=== PATIENT | female | born 1985 | race Caucasian/White ===

== ENCOUNTER → 2017-04-01 | Emergency (ER) | payer OTHER ==
[~2017-04-01] MED LIST: ACETAMINOPHEN 325 MG TABLET (FP) ONE; ACETAMINOPHEN 325 MG TABLET (FP) PO ONE
[2017-04-01 03:17] VITALS: BMI 28.3
--- NOTE | 2017-04-01 04:37 | PDOC ---
History of Present Illness - General Chief Complaint: Pain, Acute Stated Complaint: STOMACH PAIN (11 WEEKS) Time Seen by Provider: 04/01/17 03:22 History Source: Patient Exam Limitations: No Limitations - History of Present Illness Initial Comments: 04/01/17 04:33 Patient is a 31 year old female with LMP 01/04/17 h/o C/S x 1, c/o vaginal bleeding and lower abd pain since 1 am. States she woke up with the pain and bleeding. No nausea, vomiting, fever, chills, dysuria. [facility] pmd: Dr. Mathe[facility] PMHX: as above psochx: neg durg, etoh, cig ALL: NKDA GENERAL/CONSTITUTIONAL: [No fever or chills. No weakness. No weight change.] HEAD, EYES, EARS, NOSE AND THROAT: [No change in vision. No ear pain or discharge. No sore throat.] CARDIOVASCULAR: [No chest pain or shortness of breath.] RESPIRATORY: [No cough, wheezing, or hemoptysis.] GASTROINTESTINAL: [No nausea, vomiting, diarrhea or constipation. No rectal bleeding.] GENITOURINARY: [No dysuria, frequency, or change in urination, (+) vag bleed.] MUSCULOSKELETAL: [No joint or muscle swelling or pain. No neck or back pain.] SKIN AND BREASTS: [No rash or easy bruising.] NEUROLOGIC: [No headache, vertigo, loss of consciousness, or loss of sensation.] PSYCHIATRIC: [No depression or anxiety.] ENDOCRINE: [No increased thirst. No abnormal weight change.] HEMATOLOGIC/LYMPHATIC: [No anemia, easy bleeding, or history of blood clots.] ALLERGIC/IMMUNOLOGIC: [No hives or skin allergy. No latex allergy.] GENERAL: [The patient is awake, alert, and fully oriented, in mild distress.] HEAD: [Normal with no signs of trauma.] EYES: [Pupils equal, round and reactive to light, extraocular movements intact, sclera anicteric, conjunctiva clear.] ENT: [Ears normal, nares patent, oropharynx clear without exudates. Moist mucous membranes.] NECK: [Normal range of motion, supple without lymphadenopathy, JVD, or masses.] LUNGS: [Breath sounds equal, clear to auscultation bilaterally. No wheezes, and no crackles.] HEART: [Regular rate and rhythm, normal S1 and S2 without murmur, rub.] ABDOMEN: [Soft, (+) mild lower abd tenderness, normoactive bowel sounds. No guarding, no rebound. No masses.] PELVIC: (+) bleeding, small amount of blood in the vault, no bleeding from closed os EXTREMITIES: [Normal range of motion, no edema. No clubbing or cyanosis. No cords, erythema, or tenderness.] NEUROLOGICAL: [Cranial nerves II through XII grossly intact. Normal speech, normal gait.] PSYCH: [Normal mood, normal affect.] SKIN: [Warm, Dry, normal turgor, no rashes or lesions noted.] Past History - Past Medical History Allergies/Adverse Reactions: Allergies Allergy/AdvReac Type Severity Reaction Status Date / Time No Known Allergies Allergy Verified 04/01/17 03:07 Home Medications: Ambulatory Orders Benzocaine/Resorcinol [Vaginal Itch Cream] 30 gm TP BID #1 tube 01/28/16 Miconazole/Cleanser 17 On Wipe [Monistat 7 Combination Pack] 1 each VG HS #1 kit 01/28/16 Other medical history: pt denies - Immunization History Immunization Up to Date: Yes - Psycho/Social/Smoking Cessation Hx Suicidal Ideation: No Smoking History: Never smoked Information on smoking cessation initiated: No Hx Alcohol Use: No Drug/Substance Use Hx: No Substance Use Type: None *Physical Exam - Vital Signs Last Vital Signs Temp Pulse Resp BP Pulse Ox 97.5 F L 75 20 116/65 100 04/01/17 03:07 04/01/17 03:07 04/01/17 03:07 04/01/17 03:07 04/01/17 03:07 ED Treatment Course - LABORATORY CBC & Chemistry Diagram: 04/01/17 05:05 Medical Decision Making - Medical Decision Making 04/01/17 05:51 Patient is a 31 year old female with LMP 01/04/17 h/o C/S x 1, c/o vaginal bleeding and lower abd pain since 1 am. she is 10 weeks with OBS care. Symptoms consistent with threatened . cbc, type and screen UA will discharge after labs 04/01/17 05:54 Bedside US done (+) live IUP, (+) FH 157 labs with no acute finding, blood in the urine. T&S O+ 04/01/17 06:18 I discussed the physical exam findings, ancillary test results and final diagnoses with the patient. I answered all of the patient's questions. The patient was satisfied with the care received and felt comfortable with the discharge plan and treatment plan. The Patient agrees to follow up with the primary care physician within 24-72 hours. *DC/Admit/Observation/Transfer Diagnosis at time of Disposition: Threatened - Discharge Dispostion Disposition: HOME Condition at time of disposition: Stable - Referrals Referrals: Bisi Mccullough MD [Primary Care Provider] - - Patient Instructions Printed Discharge Instructions: DI for Threatened Additional Instructions: Your Discharge Instructions: You must call primary care physician within 24 hours to arrange follow-up. Return to the Emergency Department with any new, persistent or worsening symptoms, for fever, chills, SOB, dizziness or any other concerning changes that may occur. Follow up with OBS/SALON SALES CONSULTANT
[2017-04-01 05:10] LABS: MCH 27.5 pg (25.7-33.7); MCHC 32.9 g/dl (32.0-36.0); MEAN CELL VOLUME 83.7 fl (80-96); MEAN PLT VOLUME 7.8 fl (7.5-11.1); PLATELET COUNT 245 K/MM3 (134-434); RDW 22.9 % (11.6-15.6); WHITE BLOOD COUNT 8.5 K/mm3 (4.0-10.0)
[2017-04-01 05:15] LABS: URINE APPEARANCE CLEAR; URINE BILIRUBIN NEGATIVE (NEGATIVE); URINE COLOR YELLOW; URINE GLUCOSE (UA) NEGATIVE (NEGATIVE); URINE KETONE NEGATIVE (NEGATIVE); URINE LEUK ESTERASE NEGATIVE (NEGATIVE); URINE NITRITE NEGATIVE (NEGATIVE); URINE PROTEIN NEGATIVE (NEGATIVE); URINE UROBILINOGEN NEGATIVE E.U./dl (0.2-1.0)
[2017-04-01 05:26] LABS: URINE BLOOD 3+ (NEGATIVE)
[2017-04-01 05:28] LABS: URINE BACTERIA RARE /hpf (NONE SEEN); URINE MUCUS RARE; URINE RBC 20 /hpf (0-3); URINE WBC 3 /hpf (3-5)
[2017-04-01 06:47] VITALS: BP 116/75; PULSE 56; TEMP 97.6
== END | disposition home or self-care (01) ==
LOC: JER 02:02
DX: O20.0 Threatened abortion (principal); Z3A.10 10 weeks gestation of pregnancy
CPT/HCPCS: 36415; 81003; 81015; 85027; 86850; 86900; 86901; 99283-25

== ENCOUNTER 2017-04-08 17:22 | Emergency (ER) | payer OTHER ==
[2017-04-08 17:32] VITALS: BP 126/64; PULSE 61; TEMP 98.1; BMI 28.5
--- NOTE | 2017-04-08 22:00 | PDOC ---
History of Present Illness - General History Source: Patient Exam Limitations: No Limitations - History of Present Illness Initial Comments: 04/08/17 23:21 The patient is a 31-year-old female, , with no significant past medical history, who presents to the ED with vaginal bleeding and abdominal pain. Pt states that her pain is similar to contraction pain. Pts blood is dark brown in color. She reports to the ED for worsening abdominal pain. Pt was seen in the ED on 04/01 for threatened ; pt was 11 weeks . The patient denies any fever, chills, nausea, vomiting, diarrhea. The patient denies any dysuria. <Johanna Venegas - Last Filed: 04/08/17 23:21> <Mamta Russell - Last Filed: 04/09/17 00:36> - General Chief Complaint: Vaginal Bleeding Stated Complaint: VAGINAL BLEEDING, 11 WKS Time Seen by Provider: 04/08/17 21:02 Past History <Johanna Venegas - Last Filed: 04/08/17 23:21> - Reproductive History (#): 4 Para: 3 - Immunization History Immunization Up to Date: Yes - Psycho/Social/Smoking Cessation Hx Suicidal Ideation: No Smoking History: Never smoked Information on smoking cessation initiated: No Hx Alcohol Use: No Drug/Substance Use Hx: No Substance Use Type: None <Mamta Russell - Last Filed: 04/09/17 00:36> - Past Medical History Allergies/Adverse Reactions: Allergies Allergy/AdvReac Type Severity Reaction Status Date / Time No Known Allergies Allergy Verified 04/08/17 17:32 Home Medications: Ambulatory Orders Benzocaine/Resorcinol [Vaginal Itch Cream] 30 gm TP BID #1 tube 01/28/16 Miconazole/Cleanser 17 On Wipe [Monistat 7 Combination Pack] 1 each VG HS #1 kit 01/28/16 Review of Systems - Review of Systems Able to Perform ROS?: Yes Comments:: 04/08/17 23:21 Adult Comprehensive CONSTITUTIONAL: Absent: fever, no chills, no fatigue EYES: Absent: visual changes ENT: Absent: ear pain, no sore throat CARDIOVASCULAR: Absent: chest pain, no palpitations RESPIRATORY: Absent: cough, no SOB GI: Present: abdominal pain Absent: no nausea, no vomiting, no constipation, no diarrhea GENITOURINARY: Present: vaginal bleeding Absent: dysuria, no frequency, no hematuria MUSKULOSKELETAL: Absent: back pain, no arthralgia SKIN: Absent: rash NEURO: Absent: headache <TheoJohanna - Last Filed: 04/08/17 23:21> *Physical Exam - Vital Signs Last Vital Signs Temp Pulse Resp BP Pulse Ox 98.1 F 61 18 126/64 99 04/08/17 17:29 04/08/17 17:29 04/08/17 17:29 04/08/17 17:29 04/08/17 17:29 - Physical Exam Comments: 04/08/17 23:23 GENERAL: Well-appearing, well-nourished. No apparent distress. HEENT: Normocephalic, atraumatic. PERRL, EOM intact. CARDIOVASCULAR: Normal S1, S2. Regular rate and rhythm. PULMONARY: Clear to auscultation bilaterally. ABDOMEN: Soft, non-distended, non-tender. EXTREMITIES: Normal ROM in all four extremities. No gross deformities. SKIN: Warm, dry. No rash NEUROLOGICAL: No focal neurological deficits. <TheoJohanna - Last Filed: 04/08/17 23:21> - Vital Signs Last Vital Signs Temp Pulse Resp BP Pulse Ox 98.1 F 61 18 126/64 99 04/08/17 17:29 04/08/17 17:29 04/08/17 17:29 04/08/17 17:29 04/08/17 17:29 <Mamta Russell - Last Filed: 04/09/17 00:36> Medical Decision Making - Medical Decision Making 04/09/17 00:31 31 yo female p/w pelvic cramping and scant blood on toilet paper US SL IUP 13 weeks 1 day and heart beat 161 bpm,no free fluid cg [id number] imp threatened ab plan :followup with her nursing staffing coordinator within 1 week <Mamta Russell - Last Filed: 04/09/17 00:36> *DC/Admit/Observation/Transfer - Attestations Scribe Attestion: 04/08/17 22:13 Documentation prepared by Johanna Venegas, acting as medical receptionist for Mamta Russell MD. <Johanna Venegas - Last Filed: 04/08/17 23:21> <DrewMamta Mccrary - Last Filed: 04/09/17 00:36> Diagnosis at time of Disposition: Threatened - Discharge Dispostion Disposition: HOME Condition at time of disposition: Stable - Referrals Referrals: Bisi Sorto MD [Primary Care Provider] - - Patient Instructions Printed Discharge Instructions: DI for Vaginal Bleeding During , DI for Threatened Additional Instructions: please follow up with your nursing staffing coordinator
== END 2017-04-09 00:44 | disposition home or self-care (01) ==
LOC: JER 17:22
DX: O20.0 Threatened abortion (principal); Z3A.13 13 weeks gestation of pregnancy
CPT/HCPCS: 36415; 76801-TC; 84702; 99281-25

== ENCOUNTER 2017-10-04 06:12 | Inpatient (IN) | payer OTHER ==
[2017-10-04 06:38] VITALS: BMI 32.0
[2017-10-04] MEDS ORDERED: ELECTROLYTE-148 SOLN 500 ML IV ONE (06:40)
[2017-10-04] MEDS ORDERED: CITRIC ACID/SODIUM CITRATE 30 ML UNIT-DOSE CUP PO ONE (06:40)
[2017-10-04] MEDS ORDERED: ELECTROLYTE-148 SOLN 1,000 ML IV SCH (07:10)
[2017-10-04] MEDS ORDERED: OXYTOCIN 20 UNITS in 0.9% NS 40 UNIT/2,000 ML INFUS.BAG IV ONE (07:33)
[2017-10-04] MEDS ORDERED: morphine SULFATE/Preservative Free 0.5 MG/ML (1cc Syringe) ONE (08:06)
[2017-10-04] MEDS ORDERED: PHENYLEPHRINE HCL 10 MG/1 ML SINGLE DOSE VIAL ONE (08:06)
[2017-10-04] MEDS ORDERED: EPINEPHrine/PF 1 MG/1 ML (1:1,000) AMPULE ONE (08:16)
--- NOTE | 2017-10-04 08:19 | HP ---
Past Medical History - Primary Care Physician PCP:: Kita Hilton - Admission Chief Complaint: 31 yrs , , , previous c/s, breech presentation,(by [facility] 09/25/17 ) admitted for elective c/section, srom at 8.00 AM. she has irregula uc. pt requests for voluntory sterlization History of Present Illness: [facility] at , [facility] .wt gain 20 LBS wrk UP , Opos, Rpr nr, Rubella pos, Hbsag neg, Hiv neg, Sickle neg, Quantiferon neg, 1hrGtt 110, Gbs neg . sono gram reviewed , serial growth sonograms were done. NT screen & Modified Sequential negative History Source: Patient, Medical Record - Past Medical History WIREWORKER: No: Migraine, Seizure Cardiovascular: No: HTN Pulmonary: No: Asthma Gastrointestinal: No: Gastritis Renal/: No: UTI ...: 4 ...Para: 3 ...Term: 3 ...: 0 ...Spon : 0 ...Induced : 0 ...Multiple Gestation: 0 ...LMP: 01/04/17 ... Weeks Gestation by Dates: 39 ...EDC by Dates: 10/11/17 ...EDC by Sono: 10/11/17 Additional OB History: G1 05/30/2000 3kg [place]. G2 10/10/2006 3 kg [place]. G3 03/26/2010 primary LFTC/section 9'11" FTP at [facility] Heme/Onc: Yes: Anemia. No: Sickle Cell Trait Infectious Disease: No: STD's, Tuberculosis Psych: No: Addictions, Anxiety, Bipolar, Depression - Past Surgical History Past Surgical History: Yes: (03/26/2010) Hx Myomectomy: No Hx Transabdominal Cerclage: No - Smoking History Smoking history: Never smoked Have you smoked in the past 12 months: No - Alcohol/Substance Use Hx Alcohol Use: No History of Substance Use: reports: None Home Medications - Allergies Allergies/Adverse Reactions: Allergies Allergy/AdvReac Type Severity Reaction Status Date / Time No Known Allergies Allergy Verified 10/04/17 06:49 - Home Medications Home Medications: Ambulatory Orders Prenat 115/Iron Fum/Folic/Dss [ 19 Tablet] 1 tab PO DAILY 10/04/17 Physical Exam - Maternity Vital Signs: Vital Signs Temperature 97.8 F 10/04/17 06:27 Pulse Rate 56 L 10/04/17 06:27 Respiratory Rate 20 10/04/17 06:27 Blood Pressure 115/74 10/04/17 06:27 O2 Sat by Pulse Oximetry (%) Constitutional: Yes: Well Nourished, No Distress Eyes: Yes: WNL HENT: Yes: WNL, Normocephalic Neck: Yes: WNL Cardiovascular: Yes: WNL, Regular Rate and Rhythm Lungs: Clear to auscultation Breast(s): Yes: WNL - Abdominal Exam/OB Fundal Height: 38 Number of Fetuses: Single Presentation: Vertex Contractions: Yes Regularity: Irregular Intensity: Mild Heart Rate (range): 140-150 Heart Rate Location: Midline Category: I Accelerations: Uniform Decelerations: None - Vaginal Exam/OB Vaginal Bleediing: No Speculum Exam: No Dilatation (cm): ft Effacement (%): 50 Amniotic Membrane Status: Ruptured (srom at 8.00AM) Nitrazine Test: Positive Amniotic Fluid: Yes: Clear Presentation: Vertex/Position (compound presentaion) Station: -3 - Physical Exam Musculoskeletal: Yes: WNL Extremities: Yes: WNL Edema: Yes Edema: LLE: 1+, RLE: 1+ Integumentary: Yes: Incision (pfannensteil scar) Deep Tendon Reflex Grade: Normal +2 ...Motor Strength: WNL Psychiatric: Yes: WNL, Alert, Oriented - Labs Lab Results: Laboratory Tests 10/02/17 10/02/17 10/02/17 10:31 10:31 10:31 WBC 7.1 Hgb 12.5 Hct 37.3 Plt Count 248 Neutrophils % 70.3 Lymphocytes % 19.3 PT with INR 10.70 INR 0.95 Sodium 137 Potassium 3.9 Chloride 105 Carbon Dioxide 23 Creatinine 0.5 L Random Glucose 79 AST 40 H ALT 52 RPR Titer 10/02/17 10:31 WBC Hgb Hct Plt Count Neutrophils % Lymphocytes % PT with INR INR Sodium Potassium Chloride Carbon Dioxide Creatinine Random Glucose AST ALT RPR Titer Nonreactive Hemorrhage Risk Assessment - Risk Factors Medium Risk Factors: Yes: Prior , uterine surgery,or multiple laparotomies Risk Score: 1 Risk Level: Medium Risk Problem List - Problems (1) Previous section Code(s): Z98.891 - HISTORY OF UTERINE SCAR FROM PREVIOUS SURGERY (2) with 39 completed weeks gestation Code(s): Z3A.39 - 39 WEEKS GESTATION OF (3) SROM (spontaneous rupture of membranes) Code(s): TNU8616 - (4) Multiparity Code(s): Z64.1 - PROBLEMS RELATED TO MULTIPARITY Assessment/Plan 31 yrs , previous c/section , mutiparity, requests for repeat c.section & voluntary sterlization Plan Repeat LFTC/section & BTL
[2017-10-04] MEDS ORDERED: ONDANSETRON 4 MG/2 ML VIAL IVPUSH PRN (08:26)
[2017-10-04] MEDS ORDERED: ONDANSETRON 4 MG/2 ML VIAL ONE (09:29)
[2017-10-04] MEDS ORDERED: SENNOSIDES/DOCUSATE COMBO (SENNA PLUS) TABLET (UD) PO PRN (09:42)
[2017-10-04] MEDS ORDERED: METHYLERGONOVINE MALEATE 0.2 MG/1 ML AMP IM PRN (09:42)
[2017-10-04] MEDS: OXYTOCIN 20 UNITS in 0.9% NS 20 UNIT/1,000 ML INFUS.BAG IV SCH (09:45)
--- NOTE | 2017-10-04 09:56 | OP ---
Operative Note - Note: Operative Date: 10/04/17 Pre-Operative Diagnosis: 39 weeks, previous c/sction, Multiparity, voluntory sterlization Operation: Repeat LFTC/section & BTL Findings: 8.36 AM, Baby Girl, 9/9, Wt 7'2: , Vx LOT Bothh tubes & ovaries normal Both tubes ligated & cut by Modified [place] technique . Dr Parish Geronimo present in the OR Surgeon: Kita Hilton Workers' Compensation Claims Examiner: Riky Sharma Anesthesiologist/PUBLIC BATH ATTENDANT: Christopher Stiles Anesthesia: Spinal Specimens Removed: placenta. cord blood. portion of Left Tube. portion of Right Tube Estimated Blood Loss (mls): 700 Drains, Volume Out (mls): 300 (suzi color , del rosario out put ) Fluid Volume Replaced (mls): 2,000 (Iv ancef 1 gm prior to incision ) Operative Report Dictated: Yes
--- NOTE | 2017-10-04 10:30 | PN ---
Delivery - Delivery Section: Repeat, Low Flap Transverse (BTL) Type of Anesthesia: Spinal Episiotomy/Laceration: None EBL (cc): 700 (del rosario out put 300 ml uszi color ) Delivery, Single - Stages of Labor Date of Delivery: 10/04/17 Time of Delivery: 08:36 Date Placenta Delivered: 10/04/17 Time Placenta Delivered: 08:38 Placenta: Yes: Manual Removal - Condition of Non Categorical Preschool Teacher/Social Media Specialist Present: Yes Name: Grazyna Lugo Infant Gender: Female Weight: 7 lb 2 oz Position: Left, OT Total Hours ROM (Hrs/Mins): 1min - 1 Minute Total Score: 9 5 Minutes Total Score: 9 - Feeding Plan Initial Plan: Elected not to breastfeed exclusively throughout hospitalization Remarks - Remarks Remarks: 31 yrs , previous c/section 39 weeks , requests for voluntary sterlization gbs neg. . care at , [facility] Intraop course uneventful.
--- NOTE | 2017-10-04 10:43 | DS ---
Physical Exam-DEFENCE INTELLIGENCE ANALYST Vital Signs: Vital Signs Temperature 97.6 F 10/04/17 10:15 Pulse Rate 70 10/04/17 10:15 Respiratory Rate 20 10/04/17 10:15 Blood Pressure 106/60 10/04/17 10:15 O2 Sat by Pulse Oximetry (%) Selected Entries 10/07/17 09:00 Temperature 98.2 F Pulse Rate 66 Blood Pressure 108/57 Constitutional: Yes: Well Nourished, Mild Distress Eyes: Yes: WNL HENT: Yes: WNL Neck: Yes: WNL Cardiovascular: Yes: WNL Respiratory: Yes: WNL, Regular, CTA Bilaterally, Cough, Other (c/o productive cough chest Xray neg flu symptoms, nasal congestion reduced). No: SOB Gastrointestinal: Yes: WNL, Normal Bowel Sounds, Soft, Other (bm done). No: Distention Renal/: Yes: WNL, Other (voiding without difficulty) ....Post : Yes: Uterus firm, Moderate lochia rubra Breast(s): Yes: WNL Extremities: No: Calf Tenderness Edema: LLE: 1+, RLE: 1+ Wound/Incision: Yes: Clean/Dry, Mary Intact, Steri Strips, Open to air. No: Reddened, Bleeding, Excoriated Neurological: Yes: WNL, Alert, Oriented ...Motor Strength: WNL Psychiatric: Yes: WNL, Alert, Oriented Labs: Selected Entries 10/07/17 09:00 Temperature 98.2 F Laboratory Tests 10/07/17 07:00 WBC 9.7 Hgb 11.1 Hct 33.5 Plt Count 251 Neutrophils % 80.7 Lymphocytes % 11.6 D Monocytes % 5.0 Eosinophils % 2.3 D Delivery - Delivery Section: Repeat, Low Flap Transverse (BTL) Type of Anesthesia: Spinal Episiotomy/Laceration: None EBL (cc): 700 (del rosario out put 300 ml suzi color ) Delivery, Single - Stages of Labor Date of Delivery: 10/04/17 Time of Delivery: 08:36 Time Placenta Delivered: 08:38 Placenta: Yes: Manual Removal - Condition of Infant Cigarette Filter Inspector/Nuclear Waste Process Operator Present: Yes Name: Grazyna Lugo Infant Gender: Female Weight: 7 lb 2 oz Position: Left, OT Total Hours ROM (Hrs/Mins): 1min - 1 Minute Total Score: 9 5 Minutes Total Score: 9 - [place] Ari Feeding Plan Initial Plan: Elected not to breastfeed exclusively throughout hospitalization Remarks - Remarks Remarks: 31 yrs , previous c/section 39 weeks , requests for voluntary sterlization gbs neg. . care at [address] [place] [address] Intraop course uneventful. . post op course uneventful. discharge 10/07/17 she will return for mary removal Discharge Summary Reason For Visit: SCHEDULED C SECTION Current Active Problems delivery, delivered, current hospitalization (Acute) Elective delivery before 39 weeks of gestation (Acute) Encounter for tubal ligation (Acute) Multiparity (Acute) with 39 completed weeks gestation (Acute) Previous section (Acute) SROM (spontaneous rupture of membranes) (Acute) Condition: Good - Instructions Diet, Activity, Other Instructions: Post Instructions DIET: Continue good diet high in protein, calcium, and iron rich foods. Drink at least eight (8) glasses of water daily in addition to other fluids. ___ Regular diet MEDICATIONS: Continue vitamins and iron as previously directed. Motrin and Tylenol may be taken for minor discomfort. ACTIVITY: Mild to moderate exercise may be started in two (2) weeks. Take frequent rest periods. Resume normal activity after six (6) week check up. WOUND CARE OF OPERATIVE SITE: Continue use of perineal bottle until vaginal discharge stops. Keep area clean. Shower daily. Keep abdominal wound dry. Report any drainage or redness to physician. Tub baths, tampons and douches are not permitted for [address] Breast feeding & or Bottle feeding BREAST CARE: (For those that are not breast feeding): If engorgement occurs: Wear tight fitting bra. Take Tylenol or Motrin for pain. Apply cold packs (ice in bags to each breast ) FAMILY PLANNING: There are many control alternatives to pursue and they should be discussed at your first office visit. You may resume sexual activity after your six (6) week check up. (Remember, breast feeding is not a contraceptive) NEXT PHYSICIAN APPOINTMENT: Be certain to call for one (1) week appointment, unless otherwise directed. . rt to L&D for mary removal on 10/10/17 , to see Dr osuna at 10.00AM Call Clinic or got to Emergency Dept if you have any of the following: Heavy vaginal bleeding Painful urination Leg pain Unusual odor noted to vaginal bleeding High fever Red streaking noted on breast Referrals: Kita Osuna MD [Staff Physician] - Disposition: HOME - Home Medications Comprehensive Discharge Medication List: Ambulatory Orders Acetaminophen [Tylenol .Regular Strength -] 500 mg PO Q4H PRN #30 tablet Ferrous Sulfate [Feosol] 325 mg PO BIDWM tab 10/04/17 Ibuprofen [Motrin -] 600 mg PO Q4H PRN #30 tablet 10/04/17 Prenat 115/Iron Fum/Folic/Dss [ 19 Tablet] 1 tab PO DAILY 10/04/17 Vitamins (Sjr) - 1 tab PO DAILY tablet 10/04/17
[2017-10-04] MEDS: IBUPROFEN 800 MG/8 ML IJ IVPB PRN ×2 (11:22→22:18)
[2017-10-04] MEDS: guaiFENesin 200 MG/10 ML 10 ML UNIT-DOSE CUPS PO PRN ×3 (14:49→22:15)
[2017-10-04] MEDS: CEFAZOLIN 1 GM PUSH 1 GM/10 ML DISP.SYRIN IVPUSH SCH ×2 (16:42→23:53)
[2017-10-05] MEDS: guaiFENesin 200 MG/10 ML 10 ML UNIT-DOSE CUPS PO PRN ×2 (08:08→20:59)
[2017-10-05] MEDS: CEFAZOLIN 1 GM/D5W 1 GM/50 ML BAG IVPB SCH ×2 (08:08→08:10)
[2017-10-05] MEDS: SIMETHICONE 80 MG TAB.CHEW (FP) PO PRN ×3 (08:08→20:59)
[2017-10-05] MEDS: IBUPROFEN 600 MG TABLET (FP) PO PRN ×3 (08:08→20:59)
[2017-10-05] MEDS: ACETAMINOPHEN 325 MG TABLET (FP) PO PRN ×2 (08:09→17:47)
[2017-10-05 08:15] LABS: BASO % 1.3 % (0-2.0); EOS % 0.9 % (0-4.5); HEMATOCRIT 34.3 % (32.4-45.2); HEMOGLOBIN 11.3 GM/dL (10.7-15.3); LYMPH % 18.8 % (8-40); MCH 30.8 pg (25.7-33.7); MCHC 33.1 g/dl (32.0-36.0); MEAN CELL VOLUME 93.1 fl (80-96); MEAN PLT VOLUME 8.6 fl (7.5-11.1); MONO % 7.3 % (3.8-10.2); NEUT % 71.7 % (42.8-82.8); PLATELET COUNT 226 K/MM3 (134-434); RBC 3.68 M/mm3 (3.60-5.2); RDW 13.9 % (11.6-15.6); WHITE BLOOD COUNT 11.2 K/mm3 (4.0-10.0)
--- NOTE | 2017-10-05 08:18 | PN ---
Post Progress Note - Subjective Subjective: 31 yo Para 4 status post primary , seen and evaluated. She's having productive cough and c/o incision pain. Post Day: 1 Type of Delivery: Primary C/S Vital Signs: Vital Signs Temperature 98.2 F 10/05/17 06:00 Pulse Rate 58 L 10/05/17 06:00 Respiratory Rate 18 10/05/17 06:00 Blood Pressure 112/62 10/05/17 06:00 O2 Sat by Pulse Oximetry (%) Breast Exam: Yes: Soft Uterus: Yes: Fundus Firm Incision: Yes: Dressing dry and intact Abdomen/GI: Yes: Abdomen soft Lochia: Yes: Rubra Lochia, amount: Small Extremities: Yes: Calves non-tender Perineum: Yes: Intact Activity: Ambulating Problem List - Problems (1) Cough productive of clear sputum Code(s): R05 - COUGH Assessment/Plan Status post Productive cough Azithromycin Continue Robitussin Continue observation
[2017-10-05] MEDS ORDERED: BISACODYL 10 MG SUPP.RECT RC PRN (09:42)
--- NOTE | 2017-10-05 10:12 | PN ---
Progress Note (short form) - Note Progress Note: Anesthesia post op note, POD#1, S/P under spinal with Duramorph. VSS. No apparent post Anesthesia complication. Signed off
--- NOTE | 2017-10-05 10:26 | OP ---
DATE OF OPERATION: 10/04/2017 PREOPERATIVE DIAGNOSES: A 39-week , previous section, multiparity, requests voluntary sterilization. OPERATION DONE: Repeat low flap transverse section and bilateral tubal ligation. SURGEON: Kita Hilton MD NEWSPAPER PHOTOJOURNALIST SURGEON: GABI Mehta ANESTHESIOLOGIST: Christopher Stiles MD ANESTHESIA: Spinal. ESTIMATED BLOOD LOSS: 700 mL. URINE OUTPUT: Intraoperatively was 300 mL. It was suzi colored. ANTIBIOTICS: IV Ancef intraoperatively prior to the incision was given, 1 g. FINDINGS: This is a 31-year-old 4, para 3-0-0-3 who had a previous , also requests a voluntary sterilization. OPERATION PROCEDURE: Patient is taken to the operating room table. She ruptured the membranes before taking to the operating room at 8:00 a.m. and clear fluid. Abdomen was shaved, prepped. Grossman catheter was placed. The spinal anesthesia was given and she was placed in supine position. Abdomen was painted and draped in usual manner. Pfannenstiel incision was made through previous incision scar, skin, subcutaneous tissue. Anterior rectus sheath was incised transversely. Bleeding points were clamped and cauterized. Rectus muscle was from the rectus sheath. Parietal peritoneum was opened vertically and the lower flap bladder peritoneum was opened transversely. The bladder was pushed down and the lower uterine segment was incised transversely. Amniotic fluid was clear and the baby was delivered at 8: 26 a.m. from the LOT position. Baby girl, was 9, 9. Baby's weight was 7 pounds 2 ounces. Cord was clamped, cut. Cord blood was collected and the baby was handed over to the crumb packer, Dr. Grazyna Lugo. The placenta was removed completely with the membranes uterine incision was closed in 2 layers. Before that, uterine cavity was cleaned. First layer was closed with Biosyn 0 suture. Continuous locking sutures were taken. Second layer was a continuous intermittently locking with Biosyn 0 suture. Hemostasis was verified and then both tubes and ovaries were inspected. They were normal. First, the left tube in the ampullary portion of the tube was doubly ligated with a plain 2-0 catgut and a portion of the tube above it was cut, sent for pathology examination and endosalpinx was cauterized. Similar procedure was done on the right tube and portion of the tube, right side, was sent for pathology examination. Hemostasis was verified. Irrigation was done. Sponge, instrument, needle count was correct and the closure of the abdomen was done. Parietal peritoneum was closed with a Vicryl 0 suture. Muscles were approximated together with Vicryl 0 interrupted sutures and then anterior rectus sheath was closed with a Vicryl 0 continuous suture. Hemostasis was checked and interrupted sutures were taken in subcutaneous tissue and then skin was approximated with santos. Blood clots were removed from the vagina. Patient tolerated the procedure well and she was transferred to the recovery room in stable condition. Kristen [id number] [id number]
[2017-10-05] MEDS: AZITHROMYCIN 250 MG TABLET PO SCH (10:39)
[2017-10-05] MEDS: ENOXAPARIN NA (PORCINE) 40 MG/0.4 ML DISP.SYRIN SQ SCH (10:39)
[2017-10-05] MEDS: PRENATAL VITAMINS W/ FOLIC ACID TABLET (FP) PO SCH (10:39)
[2017-10-05] MEDS: OXYTOCIN 20 UNITS in 0.9% NS 20 UNIT/1,000 ML INFUS.BAG IV SCH (10:40)
[2017-10-05] MEDS: oxyCODONE HCL 5 MG TABLET PO PRN ×3 (16:15→21:00)
[2017-10-05] MEDS: FERROUS SO4 325 MG TABLET (FP) PO SCH (17:46)
[2017-10-06] MEDS: SIMETHICONE 80 MG TAB.CHEW (FP) PO PRN ×3 (07:58→20:49)
[2017-10-06] MEDS: IBUPROFEN 600 MG TABLET (FP) PO PRN ×3 (07:58→20:49)
[2017-10-06] MEDS: FERROUS SO4 325 MG TABLET (FP) PO SCH ×2 (07:58→17:30)
[2017-10-06] MEDS: oxyCODONE HCL 5 MG TABLET PO PRN ×3 (08:00→20:50)
[2017-10-06] MEDS: guaiFENesin 200 MG/10 ML 10 ML UNIT-DOSE CUPS PO PRN ×3 (08:01→20:50)
[2017-10-06] MEDS: ENOXAPARIN NA (PORCINE) 40 MG/0.4 ML DISP.SYRIN SQ SCH (10:14)
[2017-10-06] MEDS: AZITHROMYCIN 250 MG TABLET PO SCH (10:15)
[2017-10-06] MEDS: PRENATAL VITAMINS W/ FOLIC ACID TABLET (FP) PO SCH (10:15)
[2017-10-06] MEDS: OXYTOCIN 20 UNITS in 0.9% NS 20 UNIT/1,000 ML INFUS.BAG IV SCH (10:16)
--- NOTE | 2017-10-06 14:46 | PN ---
Post Progress Note - Subjective Subjective: Patient seen and evaluated Doing well. Post Day: 2 Type of Delivery: Primary C/S Vital Signs: Vital Signs Temperature 97.8 F 10/06/17 08:25 Pulse Rate 55 L 10/06/17 08:25 Respiratory Rate 18 10/06/17 08:25 Blood Pressure 103/64 10/06/17 08:25 O2 Sat by Pulse Oximetry (%) 97 10/05/17 21:00 Breast Exam: Yes: Soft Uterus: Yes: Fundus Firm Incision: Yes: Dressing dry and intact Abdomen/GI: Yes: Abdomen soft, Tolerating PO Lochia: Yes: Rubra Lochia, amount: Small Extremities: Yes: Calves non-tender Perineum: Yes: Intact Activity: Ambulating - Labs Labs: CBC WBC 11.2 K/mm3 (4.0-10.0) H D 10/05/17 07:40 RBC 3.68 M/mm3 (3.60-5.2) 10/05/17 07:40 Hgb 11.3 GM/dL (10.7-15.3) 10/05/17 07:40 Hct 34.3 % (32.4-45.2) 10/05/17 07:40 MCV 93.1 fl (80-96) 10/05/17 07:40 MCH 30.8 pg (25.7-33.7) 10/05/17 07:40 MCHC 33.1 g/dl (32.0-36.0) 10/05/17 07:40 RDW 13.9 % (11.6-15.6) 10/05/17 07:40 Plt Count 226 K/MM3 (134-434) 10/05/17 07:40 MPV 8.6 fl (7.5-11.1) 10/05/17 07:40 Neutrophils % 71.7 % (42.8-82.8) 10/05/17 07:40 Lymphocytes % 18.8 % (8-40) 10/05/17 07:40 Monocytes % 7.3 % (3.8-10.2) 10/05/17 07:40 Eosinophils % 0.9 % (0-4.5) 10/05/17 07:40 Basophils % 1.3 % (0-2.0) 10/05/17 07:40 Problem List - Problems (1) Cough productive of clear sputum Code(s): R05 - COUGH Assessment/Plan Status post Stable Continue post op care
--- NOTE | 2017-10-06 15:46 | DS ---
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 Vital Signs: Vital Signs Temperature 97.8 F 10/06/17 08:25 Pulse Rate 55 L 10/06/17 08:25 Respiratory Rate 18 10/06/17 08:25 Blood Pressure 103/64 10/06/17 08:25 O2 Sat by Pulse Oximetry (%) 97 10/05/17 21:00 Constitutional: Yes: Well Nourished Eyes: Yes: Conjunctiva Clear HENT: Yes: Atraumatic Neck: Yes: Supple Cardiovascular: Yes: Regular Rate and Rhythm Respiratory: Yes: Cough Gastrointestinal: Yes: Soft External Genitalia: Yes: Normal Uterus: Yes: Firm Wound/Incision: Yes: Other (drainage of serosanguinous fluid) Neurological: Yes: Alert, Oriented ...Motor Strength: WNL Psychiatric: Yes: Alert, Oriented Labs: CBC, BMP 10/05/17 07:40 Delivery - Delivery Section: Repeat, Low Flap Transverse (BTL) Type of Anesthesia: Spinal Episiotomy/Laceration: None EBL (cc): 700 (del rosario out put 300 ml suzi color ) Delivery, Single - Stages of Labor Date of Delivery: 10/04/17 Time of Delivery: 08:36 Time Placenta Delivered: 08:38 Placenta: Yes: Manual Removal - 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 Present: Yes Name: Grazyna Lugo Infant Gender: Female Weight: 7 lb 2 oz Position: Left, OT Total Hours ROM (Hrs/Mins): 1min - 1 Minute Total Score: 9 5 Minutes Total Score: 9 - [place] Feeding Plan Initial Plan: Elected not to breastfeed exclusively throughout hospitalization Discharge Summary Reason For Visit: SCHEDULED C SECTION Current Active Problems delivery, delivered, current hospitalization (Acute) Cough productive of clear sputum (Acute) Elective delivery before 39 weeks of gestation (Acute) Encounter for tubal ligation (Acute) Multiparity (Acute) with 39 completed weeks gestation (Acute) Previous section (Acute) SROM (spontaneous rupture of membranes) (Acute) Procedures: Principal: Primary Low Transverse Hospital Course: Patient admitted for post op care. She received Azithromycin and Robitussin for a productive cough. Otherwise, routine care. Condition: Good - Instructions Diet, Activity, Other Instructions: Post Instructions DIET: Continue good diet high in protein, calcium, and iron rich foods. Drink at least eight (8) glasses of water daily in addition to other fluids. ___ Regular diet MEDICATIONS: Continue vitamins and iron as previously directed. Motrin and Tylenol may be taken for minor discomfort. ACTIVITY: Mild to moderate exercise may be started in two (2) weeks. Take frequent rest periods. Resume normal activity after six (6) week check up. WOUND CARE OF OPERATIVE SITE: Continue use of perineal bottle until vaginal discharge stops. Keep area clean. Shower daily. Keep abdominal wound dry. Report any drainage or redness to physician. Tub baths, tampons and douches are not permitted for [address] Breast feeding & or Bottle feeding BREAST CARE: (For those that are not breast feeding): If engorgement occurs: Wear tight fitting bra. Take Tylenol or Motrin for pain. Apply cold packs (ice in bags to each breast ) FAMILY PLANNING: There are many control alternatives to pursue and they should be discussed at your first office visit. You may resume sexual activity after your six (6) week check up. (Remember, breast feeding is not a contraceptive) NEXT PHYSICIAN APPOINTMENT: Be certain to call for one (1) week appointment, unless otherwise directed. . rt to L&D for santos removal on 10/10/17 , to see Dr osuna at 10.00AM Call Clinic or got to Emergency Dept if you have any of the following: Heavy vaginal bleeding Painful urination Leg pain Unusual odor noted to vaginal bleeding High fever Red streaking noted on breast Referrals: Kita Osuna MD [Staff Physician] - Disposition: HOME - Home Medications Comprehensive Discharge Medication List: Ambulatory Orders Acetaminophen [Tylenol .Regular Strength -] 500 mg PO Q4H PRN #30 tablet Ferrous Sulfate [Feosol] 325 mg PO BIDWM tab 10/04/17 Ibuprofen [Motrin -] 600 mg PO Q4H PRN #30 tablet 10/04/17 Prenat 115/Iron Fum/Folic/Dss [ 19 Tablet] 1 tab PO DAILY 10/04/17 Vitamins (Sjr) - 1 tab PO DAILY tablet 10/04/17
[2017-10-07 08:33] LABS: BASO % 0.4 % (0-2.0); EOS % 2.3 % (0-4.5); HEMATOCRIT 33.5 % (32.4-45.2); HEMOGLOBIN 11.1 GM/dL (10.7-15.3); LYMPH % 11.6 % (8-40); MCH 31.1 pg (25.7-33.7); MCHC 33.1 g/dl (32.0-36.0); MEAN PLT VOLUME 8.6 fl (7.5-11.1); NEUT % 80.7 % (42.8-82.8); PLATELET COUNT 251 K/MM3 (134-434); RBC 3.56 M/mm3 (3.60-5.2); RDW 13.9 % (11.6-15.6); WHITE BLOOD COUNT 9.7 K/mm3 (4.0-10.0)
[2017-10-07] MEDS: FERROUS SO4 325 MG TABLET (FP) PO SCH (09:02)
[2017-10-07] MEDS: oxyCODONE HCL 5 MG TABLET PO PRN (09:02)
[2017-10-07] MEDS: PRENATAL VITAMINS W/ FOLIC ACID TABLET (FP) PO SCH (09:02)
[2017-10-07] MEDS: IBUPROFEN 600 MG TABLET (FP) PO PRN ×2 (09:03→13:30)
[2017-10-07] MEDS: guaiFENesin 200 MG/10 ML 10 ML UNIT-DOSE CUPS PO PRN ×2 (09:04→13:25)
[2017-10-07] MEDS: SIMETHICONE 80 MG TAB.CHEW (FP) PO PRN ×2 (09:04→13:30)
[2017-10-07] MEDS: AZITHROMYCIN 250 MG TABLET PO SCH (10:27)
[2017-10-07] MEDS: ENOXAPARIN NA (PORCINE) 40 MG/0.4 ML DISP.SYRIN SQ SCH (10:27)
[2017-10-07 12:21] VITALS: BP 108/57; PULSE 66; TEMP 98.2
[2017-10-07] MEDS: ACETAMINOPHEN 325 MG TABLET (FP) PO PRN (13:29)
--- NOTE | 2017-10-10 13:39 | PATH ---
Surgical Pathology Report Patient Name: IVAN DENNIS [facility]. Rec. 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 Specimen(s) Received A: PLACENTA B: LEFT FALLOPIAN TUBE C: RIGHT FALLOPIAN TUBE Clinical History , 39 weeks for repeat Final Diagnosis A. PLACENTA, SECTION: 600 g THIRD TRIMESTER PLACENTA WITH TRIVASCULAR UMBILICAL CORD AND UNREMARKABLE PLACENTAL MEMBRANES. B. FALLOPIAN TUBE, LEFT, PARTIAL EXCISION: FULL LUMINAL PORTION OF UNREMARKABLE FALLOPIAN TUBE. C. FALLOPIAN TUBE, RIGHT, PARTIAL EXCISION: FULL LUMINAL PORTION OF UNREMARKABLE FALLOPIAN TUBE. Electronically Signed Kassy Bourgeois M.D. Gross Description A. The specimen is received fresh labeled placenta and is a 600 gram, 18.0 x 16.0 x 3.2 cm. placenta with attached membranes and umbilical cord. The attached membranes are garcía, translucent with focal opacities and insert marginally. The umbilical cord measures 28 cm. in length and averages 1.2 cm. in diameter. The cord inserts eccentrically, 3.5 cm. to the nearest margin. No true knots or strictures are identified. Cut surface of the umbilical cord reveals 3 vessels. The surface is pearson blue with moderate fibrin deposition and appropriate caliber vessels. The maternal surface is red-brown with focal defects. Sectioning reveals red-brown, spongy parenchyma. No lesions are identified. Crystal Growing Technician sections are submitted in three cassettes as follows: 1- membrane rolls and umbilical cord; 2-3- full thickness sections of placenta. B. Received in formalin labeled "left fallopian tube," is a 0.8 cm in length portion of fallopian tube. No fimbria are present. The outer surface is garcía-doll and smooth. Sectioning reveals an unremarkable lumen. Crystal Growing Technician sections are submitted in one cassette. C. Received in formalin labeled "right fallopian tube," is a 0.8 cm in length portion of fallopian tube. No fimbria are present. The outer surface is garcía-doll and smooth. Sectioning reveals an unremarkable lumen. Crystal Growing Technician sections are submitted in one cassette. 10/09/2017 saudi10/09/2017
== END 2017-10-07 15:15 | disposition home or self-care (01) | DRG 540 ==
LOC: JLDR 06:12 → J3W 11:07
PROVIDERS: ADMIT Obstetrics & Gynecology; ATTEND Obstetrics & Gynecology
PROC: 10D00Z1 Extraction of Products of Conception, Low, Open Approach (ICD-10-PCS; principal; 2017-10-04)
PROC: 0U570ZZ Destruction of Bilateral Fallopian Tubes, Open Approach (ICD-10-PCS; 2017-10-04)
DX: O34.219 Maternal care for unspecified type scar from previous cesarean delivery (principal); R05 Cough; O90.89 Other complications of the puerperium, not elsewhere classified; Z3A.39 39 weeks gestation of pregnancy; Z37.0 Single live birth; Z30.2 Encounter for sterilization
CPT/HCPCS: 36415; 71020-TC; 85025; 88302-TC; 88307-TC; 94010

== ENCOUNTER 2018-12-01 19:59 | Emergency (ER) | payer OTHER ==
[2018-12-01 20:17] VITALS: BP 123/72; PULSE 58; TEMP 97.6; BMI 25.6
[2018-12-01] MEDS ORDERED: ONDANSETRON *ODT* 4 MG TABLET SL ONE (20:44)
--- NOTE | 2018-12-01 20:45 | PDOC ---
*Physical Exam - Vital Signs Last Vital Signs Temp Pulse Resp BP Pulse Ox 97.6 F 58 L 20 123/72 98 12/01/18 20:10 12/01/18 20:10 12/01/18 20:10 12/01/18 20:10 12/01/18 20:10 ED Treatment Course - LABORATORY CBC & Chemistry Diagram: 12/01/18 20:40 12/01/18 20:40 Medical Decision Making - Medical Decision Making 12/01/18 20:44 Patient seen by the advanced practice provider under my direct supervision. Ancillary testing reviewed as necessary. I agree with plan as outlined by the advanced practice provider. *DC/Admit/Observation/Transfer Diagnosis at time of Disposition: Biliary colic - Discharge Dispostion Disposition: HOME - Referrals Referrals: [facility] [Outside] - 24 hours [facility] [Outside] - 24 hours Jasmin Marie MD [Primary Care Provider] - - Patient Instructions Printed Discharge Instructions: DI for Biliary Colic Additional Instructions: fritz muchos lquidos Evite los alimentos grasosos y grasos Seguimiento con el cirujano para clculos biliares. Regrese a la deidra de emergencias si hay vmitos, fiebre, empeoramiento de los sntomas. - Post Discharge Activity Forms/Work/School Notes: Back to Work
[2018-12-01] MEDS ORDERED: ONDANSETRON *ODT* 4 MG TABLET ONE (20:50)
--- NOTE | 2018-12-01 21:07 | PDOC ---
History of Present Illness - General Chief Complaint: Pain Stated Complaint: ABD PAINS Time Seen by Provider: 12/01/18 20:32 History Source: Patient - History of Present Illness Initial Comments: 12/01/18 20:34 33 year old female with ruq pain and diarrhea x 3 days reports that today is more severe. denies fever, NV, urinary symptoms/ currently on her period denies pelvic pain or lower abdominal pain, flank pain. history of two times. Past History - Past Medical History Allergies/Adverse Reactions: Allergies Allergy/AdvReac Type Severity Reaction Status Date / Time No Known Allergies Allergy Verified 05/12/18 02:58 Home Medications: Ambulatory Orders Tramadol HCl 50 mg PO QID PRN #12 tablet MDD 4 05/12/18 Asthma: No Cancer: No Cardiac Disorders: No COPD: No CHF: No Diabetes: No GI Disorders: Yes (Gallstones) HTN: No Seizures: No Thyroid Disease: No - Surgical History Gastric Stapling: No GI Surgery: No - Reproductive History (#): 4 Para: 3 - Immunization History Immunization Up to Date: Yes - Suicide/Smoking/Psychosocial Hx Smoking History: Never smoked Have you smoked in the past 12 months: No Information on smoking cessation initiated: No Hx Alcohol Use: No Drug/Substance Use Hx: No Substance Use Type: None Hx Substance Use Treatment: No Review of Systems - Review of Systems Able to Perform ROS?: Yes Is the patient limited Wolof proficient: No Constitutional: No: Symptoms Reported, See HPI, Chills, Diaphoresis, Fever, Loss of Appetite, Malaise, Night Sweats, Weakness, Weight Stable, Unintentional Wgt. Loss, Unexplained wgt Loss, Other ABD/GI: Yes: Diarrhea, Nausea, Abdominal cramping. No: Symptoms Reported, See HPI, Abdominal Distended, Abd. Pain w/ defecation, Blood Streaked Bowels, Constipated, Difficulty Swallowing, Poor Appetite, Poor Fluid Intake, Rectal Bleeding, Vomiting, Indigestion, Tarry Stools, Other : No: Symptoms Reported, See HPI, Burning, Dysuria, Discharge, Frequency, Flank Pain, Hematuria, Incontinence, Pain, Urgency, Testicular Mass, Testicular Swelling, Lesions, Testicular Pain, Other Musculoskeletal: No: Symptoms Reported, See HPI, Back Pain, Gout, Joint Pain, Joint Swelling, Muscle Pain, Muscle Weakness, Neck Pain, Joint Stiffness, Other *Physical Exam - Vital Signs Last Vital Signs Temp Pulse Resp BP Pulse Ox 97.6 F 58 L 20 123/72 98 12/01/18 20:10 12/01/18 20:10 12/01/18 20:10 12/01/18 20:10 12/01/18 20:10 - Physical Exam General Appearance: Yes: Appropriately Dressed HEENT: positive: Normal ENT Inspection Respiratory/Chest: positive: Lungs Clear, Normal Breath Sounds Cardiovascular: positive: Regular Rhythm, Regular Rate Gastrointestinal/Abdominal: positive: Normal Bowel Sounds, Tender (RUQ), Soft Musculoskeletal: positive: Normal Inspection. negative: CVA Tenderness Extremity: positive: Normal Capillary Refill, Normal Inspection, Normal Range of Motion Integumentary: positive: Normal Color, Dry, Warm Neurologic: positive: Fully Oriented, Alert, Normal Mood/Affect Moderate Sedation - Procedure Monitoring Vital Signs: Procedure Monitoring Vital Signs Temperature 97.6 F 12/01/18 20:10 Pulse Rate 58 L 12/01/18 20:10 Respiratory Rate 20 12/01/18 20:10 Blood Pressure 123/72 12/01/18 20:10 O2 Sat by Pulse Oximetry (%) 98 12/01/18 20:10 ED Treatment Course - LABORATORY CBC & Chemistry Diagram: 12/01/18 20:40 12/01/18 20:40 Progress Note - Progress Note Progress Note: Abdominal pain; biliary colic P: labs UA ABdominal US Outpatient surgery follow up Medical Decision Making - Medical Decision Making 12/01/18 22:17 Cholelithiasis noted as on prior exam 05/12/2018. Gallbladder is contracted on the current study probably on a physiologic basis less likely due to development of chronic cholecystitis. If clinically indicated correlate with a 2 week follow-up sonography. There is no definite biliary tract dilatation. There is a nonspecific 1.3 cm right hepatic lobe likely cyst. Incidental finding discussed with patient recommendation for MRI. *DC/Admit/Observation/Transfer Diagnosis at time of Disposition: Biliary colic - Discharge Dispostion Disposition: HOME - Referrals Referrals: Jasmin Marie MD [Primary Care Provider] - [facility] [Outside] - [address] [facility] [Outside] - 24 hours - Patient Instructions Printed Discharge Instructions: DI for Biliary Colic Additional Instructions: fritz carine dumontuidos Evite los alimentos grasosos y grasos Seguimiento con el cirujano para clculos biliares. Regrese a la deidra de emergencias si hay vmitos, fiebre, empeoramiento de los sntomas. - Post Discharge Activity Forms/Work/School Notes: Back to Work
[2018-12-01 21:10] LABS: BASO % 0.8 % (0-2.0); EOS % 2.9 % (0-4.5); HEMATOCRIT 35.8 % (32.4-45.2); HEMOGLOBIN 12.3 GM/dL (10.7-15.3); LYMPH % 29.1 % (8-40); MCH 29.3 pg (25.7-33.7); MCHC 34.3 g/dl (32.0-36.0); MEAN CELL VOLUME 85.3 fl (80-96); MEAN PLT VOLUME 8.2 fl (7.5-11.1); MONO % 7.6 % (3.8-10.2); NEUT % 59.6 % (42.8-82.8); PLATELET COUNT 318 K/MM3 (134-434); RDW 14.2 % (11.6-15.6); WHITE BLOOD COUNT 8.6 K/mm3 (4.0-10.0)
[2018-12-01 21:15] LABS: HCG,QUALITATIVE URINE Negative; URINE APPEARANCE CLEAR; URINE BILIRUBIN NEGATIVE (<2.0 mg/dL); URINE COLOR LTYELLOW; URINE GLUCOSE (UA) NEGATIVE (NEGATIVE); URINE KETONE NEGATIVE (NEGATIVE); URINE LEUK ESTERASE NEGATIVE (NEGATIVE); URINE NITRITE NEGATIVE (NEGATIVE); URINE PROTEIN NEGATIVE (NEGATIVE); URINE UROBILINOGEN NEGATIVE mg/dL (0.2-1.0)
[2018-12-01 21:26] LABS: EPI CELLS RARE /HPF (FEW); URINE MUCUS RARE
[2018-12-01 21:37] LABS: ALBUMIN 3.9 g/dl (3.4-5.0); ALK PHOS 94 U/L (45-117); ANION GAP 6 MMOL/L (8-16); BILIRUBIN,TOTAL 0.4 mg/dL (0.2-1); BLOOD UREA NITROGEN 17 mg/dL (7-18); CALCIUM 8.1 mg/dL (8.5-10.1); CHLORIDE 106 mmol/L (98-107); CO2 27 mmol/L (21-32); CREATININE 0.9 mg/dL (0.55-1.3); GLUCOSE,RANDOM 92 mg/dL (74-106); LIPASE 140 U/L (73-393); POTASSIUM 4.1 mmol/L (3.5-5.1); SGOT/AST 19 U/L (15-37); SGPT/ALT 24 U/L (13-61); SODIUM 139 mmol/L (136-145); TOT PROT 7.9 g/dl (6.4-8.2)
[2018-12-01] MEDS ORDERED: ACETAMINOPHEN 325 MG TABLET (FP) PO ONE (22:07)
[2018-12-01] MEDS ORDERED: ACETAMINOPHEN 325 MG TABLET (FP) ONE (22:16)
== END 2018-12-01 22:32 | disposition home or self-care (01) ==
LOC: JER 19:59
DX: K80.70 Calculus of gallbladder and bile duct without cholecystitis without obstruction (principal)
CPT/HCPCS: 36415; 76705-TC; 80053; 81003; 81015; 83690; 84703; 85025; 99282-25; Q0162

== ENCOUNTER 2019-03-19 15:54 | Emergency (ER) | payer OTHER ==
[2019-03-19 16:00] VITALS: BMI 22.1
[2019-03-19] MEDS ORDERED: SODIUM CHLORIDE 0.9% 500 ML INFUS.BAG IV ONE (16:29)
--- NOTE | 2019-03-19 16:43 | PDOC ---
History of Present Illness - General Chief Complaint: Weakness Stated Complaint: WEAKNESS Time Seen by Provider: 03/19/19 16:10 History Source: Patient Exam Limitations: No Limitations - History of Present Illness Initial Comments: 33 yo F w no reported pmh presents to the ER with 2 hours of sudden onset weakness after she heard that her niece . The family who is with the patient at bedside states that the patient woke up her normal healthy self this morning without any complaints. At 1 PM she was told that her niece and all of a sudden the patient began experiencing complete body weakness and numbness and she was about to fall to the ground. The family caught her and she did not experience any trauma. The family at bedside states she stopped talking and her whole body is limp. When I came to the patient to interview her the family said now she started responding to questions and moving her body again like normal but the patient is still experiencing some numbness in all four extremities. The patient has no focal weakness or sensory deficits. Denies recent fevers, chills, infections, headache, neck pain, nausea, vomiting , blurry vision, chest pain or SOB. Allergies: NKDA, NKA Social history: Denies smoking, drinking, or other substance usage. Surgical history: . PCP: Jasmin Giron Past History - Past Medical History Allergies/Adverse Reactions: Allergies Allergy/AdvReac Type Severity Reaction Status Date / Time No Known Allergies Allergy Verified 03/19/19 16:00 Asthma: No Cancer: No Cardiac Disorders: No COPD: No CHF: No Diabetes: No GI Disorders: Yes (Gallstones) HTN: No Seizures: No Thyroid Disease: No - Surgical History Gastric Stapling: No GI Surgery: No - Reproductive History (#): 4 Para: 3 - Immunization History Immunization Up to Date: Yes - Suicide/Smoking/Psychosocial Hx Smoking History: Never smoked Have you smoked in the past 12 months: No Hx Alcohol Use: No Drug/Substance Use Hx: No Substance Use Type: None Hx Substance Use Treatment: No Review of Systems - Review of Systems Able to Perform ROS?: Yes Comments:: CONSTITUTIONAL: No fever, no chills, no fatigue EYES: No visual changes ENT: No ear pain, no sore throat CARDIOVASCULAR: No chest pain, no palpitations RESPIRATORY: No cough, no SOB GI: No abdominal pain, no nausea, no vomiting, no constipation, no diarrhea GENITOURINARY: No dysuria, no frequency, no hematuria MUSKULOSKELETAL: No backpain, no joint pain, no myalgias SKIN: No rash NEURO: No headache *Physical Exam - Vital Signs Last Vital Signs Temp Pulse Resp BP Pulse Ox 58 L 14 105/63 99 03/19/19 15:59 03/19/19 15:59 03/19/19 15:59 03/19/19 15:59 - Physical Exam Comments: CONSTITUTIONAL: Depressed affect. Lying in the bed. No apparent distress HEAD: Normocephalic; atraumatic EYES: PERRL; EOM intact ENMT: External appears normal; normal oropharynx NECK: Supple; non-tender; no cervical lymphadenopathy CARD: Normal S1, S2; no murmurs, rubs, or gallops RESP: CTAB. No wheezes, rhonchi, or rales ABD: Soft, non-distended; non-tender; no palpable organomegaly, no palpable hernias EXT: Normal ROM in all four extremities; non-tender to palpation; distal pulses intact SKIN: Warm, dry, no rash NEURO: Alert, awake, appropriate. Cranial nerves 2-12 intact. No deficits to light touch in face, upper extremities and lower extremities. No motor deficits in the in face, upper extremities and lower extremities. No pronator drift. Normoreflexic in the upper and lower extremities. Normal speech. Gait is normal without ataxia. No abnormal nystagmus. ED Treatment Course - LABORATORY CBC & Chemistry Diagram: 03/19/19 16:34 03/19/19 16:34 Medical Decision Making - Medical Decision Making 33 yo F presents with generalized body weakness after hearing about a family members . VS: WNL MDM: This presentation seems most consistent with conversion disorder. - The patient has started regaining her strength in all four extremities. - She endorses mild tingling in all 4 extremities - Her "weakness" does not fit in a focal neurologic distribution. Plan: Will obtain basic labs, magnesium, HCG, hydrate the patient and then re- assess. Labs unremarkable. Patient feels much better after IV hydration and ER observation. She is now able to walk, talk, feels like she has her strength back, and denies current numbness. Will DC patient with PCP follow up *DC/Admit/Observation/Transfer Diagnosis at time of Disposition: Weakness, Conversion disorder - Discharge Dispostion Disposition: HOME Condition at time of disposition: Improved Decision to Admit order: No - Referrals - Patient Instructions Printed Discharge Instructions: Conversion Disorder Additional Instructions: You came into the ER with weakness after you heard about the of a family member. We believe you experienced what is called conversion disorder - Please see attached handout for further explanation. Please make sure to follow up with your primary care doctor in the next 3 to 5 days to make sure you are getting better and being taken care of. Come back to the ER immediately if your weakness worsens, you get a headache, feel nauseous, or have any other new or worsening concerns. We are extremely sorry for your loss. Thank you for coming to the [facility] ER. We hope you feel better soon! Print Language: SPA - Post Discharge Activity
[2019-03-19 16:49] LABS: BASO % 0.8 % (0-2.0); EOS % 0.5 % (0-4.5); HEMATOCRIT 33.9 % (32.4-45.2); LYMPH % 18.2 % (8-40); MCH 25.8 pg (25.7-33.7); MCHC 32.4 g/dl (32.0-36.0); MEAN CELL VOLUME 79.7 fl (80-96); MEAN PLT VOLUME 8.1 fl (7.5-11.1); MONO % 5.7 % (3.8-10.2); NEUT % 74.8 % (42.8-82.8); PLATELET COUNT 330 K/MM3 (134-434); RBC 4.25 M/mm3 (3.60-5.2); RDW 14.9 % (11.6-15.6); WHITE BLOOD COUNT 9.3 K/mm3 (4.0-10.0)
[2019-03-19 17:14] LABS: ANION GAP 6 MMOL/L (8-16); BLOOD UREA NITROGEN 14 mg/dL (7-18); CALCIUM 8.8 mg/dL (8.5-10.1); CHLORIDE 110 mmol/L (98-107); CO2 24 mmol/L (21-32); CREATININE 0.5 mg/dL (0.55-1.3); GLUCOSE,RANDOM 89 mg/dL (74-106); MAGNESIUM 2.3 mg/dL (1.8-2.4); POTASSIUM 3.6 mmol/L (3.5-5.1); SODIUM 139 mmol/L (136-145)
--- NOTE | 2019-03-19 17:53 | PDOC ---
Documentation entered by Keyshawn Johnston SCRIBE, acting as scribe for Reji Logan MD. Reji Logan MD: This documentation has been prepared by the Preston gloria Aiswarya, SCRIBE, under my direction and personally reviewed by me in its entirety. I confirm that the documentation accurately reflects all work, treatment, procedures, and medical decision making performed by me. Attending Attestation - Resident Resident Name: Napoleon Lara - ED Attending Attestation I have performed the following: I have examined & evaluated the patient, The case was reviewed & discussed with the resident, I agree w/resident's findings & plan, Exceptions are as noted - HPI HPI: 03/19/19 17:54 Agree with resident exam 03/19/19 18:22 The patient is 33 year old female, with a significant PMH of gallstones, who presents to the emergency department with sudden onset of generalized weakness that began approximately 2 hours ago after she heard about the loss of her niece today at 1 pm. The patient endorses associated of body weakness, numbness and fell to the ground. The patient currently experience some numbness in all four extremities. The patient denies any head trauma or sensory deficit . The patient denies chest pain, shortness of breath, headache and dizziness. Denies fever, chills, nausea, vomit, diarrhea and constipation. Denies dysuria, frequency, urgency and hematuria. Allergies: NKDA Past surgical history: None reported Social history: None reported PCP: None reported - Physicial Exam PE: 03/19/19 17:54 GENERAL: Awake, alert, and fully oriented, in no acute distress HEAD: No signs of trauma EYES: PERRLA, EOMI, sclera anicteric, conjunctiva clear ENT: Oropharynx clear without exudates. Moist mucosa NECK: Normal ROM, supple, no lymphadenopathy, JVD, or masses LUNGS: Breath sounds equal, clear to auscultation bilaterally. No wheezes, and no crackles HEART: Regular rate and rhythm, normal S1 and S2, no murmurs, rubs or gallops ABDOMEN: Soft, nontender, normoactive bowel sounds. No guarding, no rebound. No masses EXTREMITIES: Normal range of motion, no edema. No cords, erythema, or tenderness NEUROLOGICAL: Normal speech, cranial nerves intact, negative pronator drift, 5/ 5 strength in all 4 extremities, normal sensation to light touch in all 4 extremities, normal cerebellar exam, normal gait SKIN: Warm, Dry, normal turgor, no rashes or lesions noted. - Medical Decision Making 03/19/19 17:55 33yo F presents to the ED with sudden onset global weakness and numbness after receiving bad news Vitals wnl Exam with neuro intact pt Likely conversion d/o Unlikely organic neuro pathology as pt is neuro intact and she would have to have a devastating lesion to cause her symptoms As such will hold off on imaging via CT for now. Pt also has no RF Plan to check labs to eval for metabolic disarray vs anemia vs elevated WBC Pt's symptoms are much improved during time here, will reassess 03/19/19 18:24 All symptoms are completely resolved Pt ambulating in ED with no deficits Likely stress response/conversion d/o I discussed the physical exam findings, ancillary test results and final diagnoses with the patient. I answered all of the patient's questions. The patient was satisfied with the care received and felt comfortable with the discharge plan and treatment plan. The patient will call their primary care physician within 24 hours to arrange follow-up and will return to the Emergency Department with any new, persistent or worsening symptoms. Heart Score/ECG Review #1 03/19/19 18:04 Twelve-lead EKG was performed and reviewed by me. Normal sinus rhythm, rate 71. Normal axis. Incomplete right bundle branch block. No ST elevations.
[2019-03-19 18:45] VITALS: BP 116/57; PULSE 57; TEMP 98.2
--- NOTE | 2019-03-24 12:49 | EKG ---
Test Reason : Blood Pressure : / mmHG Vent. Rate : 071 BPM Atrial Rate : 071 BPM P-R Int : 150 ms QRS Dur : 096 ms QT Int : 420 ms P-R-T Axes : 061 005 024 degrees QTc Int : 456 ms NORMAL SINUS RHYTHM INCOMPLETE RIGHT BUNDLE BRANCH BLOCK BORDERLINE ECG NO PREVIOUS ECGS AVAILABLE Confirmed by Evans Rodriguez MD ([id number]) on 03/24/2019 12:49:15 PM Referred By: Confirmed By:Evans Rodriguez MD
== END 2019-03-19 18:45 | disposition home or self-care (01) ==
LOC: JER 15:54
DX: F44.89 Other dissociative and conversion disorders (principal); Z63.4 Disappearance and death of family member
CPT/HCPCS: 36415; 80048; 83735; 84702; 85025; 93005; 93010; 99284-25

== ENCOUNTER 2021-08-02 11:30 | Emergency (ER) | payer OTHER ==
[2021-08-02 11:53] VITALS: BP 107/61; PULSE 71; TEMP 98.2; BMI 29.0
[2021-08-02] MEDS ORDERED: BACITRACIN 15 GM TUBE TOPICAL OINTMENT ONE (12:41)
== END 2021-08-02 12:45 | disposition home or self-care (01) ==
LOC: JERFT 11:30
DX: T23.202A Burn of second degree of left hand, unspecified site, initial encounter (principal); X10.2XXA Contact with fats and cooking oils, initial encounter; Y93.G3 Activity, cooking and baking
CPT/HCPCS: 99283-25

== ENCOUNTER 2022-03-15 18:59 | Emergency (ER) | payer OTHER ==
[2022-03-15 19:10] VITALS: TEMP 98.1; BMI 29.7
[2022-03-15] MEDS ORDERED: SODIUM CHLORIDE 1,000 ML IV STA (23:08)
[2022-03-15] MEDS ORDERED: ACETAMINOPHEN 1000 MG/100 ML BAG IVPB ONE (23:09)
[2022-03-15] MEDS ORDERED: ACETAMINOPHEN INJECTION 100 ML IVPB ONE (23:10)
[2022-03-16 00:28] LABS: BASO % 1.3 % (0-2.0); EOS % 4.8 % (0-4.5); HEMATOCRIT 27.9 % (32.4-45.2); LYMPH % 37.8 % (8-40); MCH 23.1 pg (25.7-33.7); MCHC 32.5 g/dl (32.0-36.0); MEAN CELL VOLUME 71.3 fl (80-96); MEAN PLT VOLUME 7.9 fl (7.5-11.1); NEUT % 45.1 % (42.8-82.8); PLATELET COUNT 320 10^3/uL (134-434); RBC 3.91 M/mm3 (3.60-5.2); RDW 16.8 % (11.6-15.6); URINE APPEARANCE TURBID; URINE BILIRUBIN NEGATIVE (NEGATIVE); URINE COLOR YELLOW; URINE GLUCOSE (UA) NEGATIVE (NEGATIVE); URINE KETONE NEGATIVE (NEGATIVE); URINE LEUK ESTERASE NEGATIVE (NEGATIVE); URINE NITRITE NEGATIVE (NEGATIVE); URINE PROTEIN NEGATIVE (NEGATIVE); WHITE BLOOD COUNT 7.6 K/mm3 (4.0-10.0)
[2022-03-16 00:30] LABS: HCG,QUALITATIVE URINE Negative
[2022-03-16 00:47] LABS: CALCIUM 8.9 mg/dL (8.5-10.1)
[2022-03-16 00:48] LABS: ALBUMIN 3.7 g/dl (3.4-5.0); BLOOD UREA NITROGEN 19.6 mg/dL (7-18)
[2022-03-16 00:52] LABS: CREATININE 0.5 mg/dL (0.55-1.3); TOT PROT 7.8 g/dl (6.4-8.2)
[2022-03-16 00:53] LABS: BILIRUBIN,TOTAL 0.4 mg/dL (0.2-1)
[2022-03-16 04:13] VITALS: BP 121/76; PULSE 78
== END 2022-03-16 04:15 | disposition home or self-care (01) ==
LOC: JER 18:59
PROC: 3E0333Z Introduction of Anti-inflammatory into Peripheral Vein, Percutaneous Approach (ICD-10-PCS; principal; 2022-03-15)
PROC: 3E0337Z Introduction of Electrolytic and Water Balance Substance into Peripheral Vein, Percutaneous Approach (ICD-10-PCS; 2022-03-15)
DX: R10.9 Unspecified abdominal pain (principal)
CPT/HCPCS: 36415; 74176-TC; 76830-TC; 80053; 81003; 83690; 84703; 85025; 87086; 99285-25

== ENCOUNTER 2024-01-08 22:37 | Emergency (ER) | payer OTHER ==
[2024-01-08 22:51] VITALS: BP 106/60; PULSE 66; RESP 18; TEMP 98.6
[2024-01-08 23:42] LABS: THROAT:GRP A STREP NOT DETECTED (NOTDETECTED)
[2024-01-09] MEDS ORDERED: NEOMYCIN/COLISTIN/HC OTIC SUSP 5 ML BOTTLE AU ONE (00:23)
[2024-01-09] MEDS ORDERED: PSEUDOEPHEDRINE HCL 30 MG TABLET PO ONE (00:24)
[2024-01-09] MEDS ORDERED: LORATADINE 10 MG TABLET ONE (00:31)
[2024-01-09] MEDS ORDERED: IBUPROFEN 400 MG TABLET (FP) PO ONE (00:31)
[2024-01-09] MEDS: IBUPROFEN 400 MG TABLET (FP) PO ONE (00:52)
[2024-01-09] MEDS: NEOMYCIN/POLYMYXN/HC OTIC SUSPENSION 10 ML BOTTLE AU ONE (00:52)
[2024-01-09] MEDS: LORATADINE 10 MG TABLET PO ONE (00:52)
[2024-01-09] MEDS: PSEUDOEPHEDRINE HCL 60 MG TABLET PO ONE (00:53)
== END 2024-01-09 00:59 | disposition home or self-care (01) ==
LOC: JERFT 22:37
DX: J02.9 Acute pharyngitis, unspecified (principal); H92.03 Otalgia, bilateral; B34.9 Viral infection, unspecified; Z20.822 Contact with and (suspected) exposure to COVID-19
CPT/HCPCS: 0241U-QW; 87651; 99283-25

== ENCOUNTER 2024-03-11 19:57 | Emergency (ER) | payer OTHER ==
[2024-03-11 20:10] VITALS: BP 111/64; PULSE 64; RESP 20; TEMP 98.5
[2024-03-11 21:17] LABS: BASO % 1.7 % (0-2.0); EOS % 4.7 % (0-4.5); HEMOGLOBIN 7.2 GM/dL (10.7-15.3); LYMPH % 31.7 % (8-40); MCHC 30.1 g/dl (32.0-36.0); MEAN CELL VOLUME 57.1 fl (80-96); MEAN PLT VOLUME 8.6 fl (7.5-11.1); MONO % 10.6 % (3.8-10.2); NEUT % 51.3 % (42.8-82.8); PLATELET COUNT 349 10^3/uL (134-434); RDW 21.8 % (11.6-15.6); WHITE BLOOD COUNT 7.7 K/mm3 (4.0-10.0)
[2024-03-11 21:18] LABS: MCH 17.2 pg (25.7-33.7)
[2024-03-11] MEDS ORDERED: ACETAMINOPHEN INJECTION 100 ML IVPB ONE (21:29)
[2024-03-11 21:34] LABS: POTASSIUM 4.2 mmol/L (3.5-5.1)
[2024-03-11] MEDS: ACETAMINOPHEN 1000 MG/100 ML BAG IVPB ONE (21:34)
[2024-03-11 21:36] LABS: ALBUMIN 3.6 g/dl (3.4-5.0); CALCIUM 8.9 mg/dL (8.5-10.1)
[2024-03-11 21:39] LABS: CREATININE 0.6 mg/dL (0.55-1.3)
[2024-03-11 21:41] LABS: BILIRUBIN,TOTAL 0.5 mg/dL (0.2-1)
[2024-03-11 21:50] LABS: PROTHROMBIN TIME (PATIENT) 11.5 SEC (9.7-13.0)
[2024-03-11 21:53] LABS: ACTIVATED PTT 24.4 SECONDS (25.2-36.5)
[2024-03-11 22:49] LABS: ANISOCYTOSIS 3+; MACROCYTOSIS 0
== END 2024-03-11 22:12 | disposition home or self-care (01) ==
LOC: JER 19:57
DX: D64.9 Anemia, unspecified (principal)
CPT/HCPCS: 36415; 80053; 83540; 83550; 84703; 85025; 85610; 85730; 86850; 86900; 86901; 99284-25; J0131

== ENCOUNTER 2024-05-17 10:02 | Observation (INO) | payer OTHER ==
[2024-05-17] MEDS ORDERED: ACETAMINOPHEN INJECTION 100 ML IVPB ONE (12:08)
[2024-05-17 12:15] LABS: BASO % 1.4 % (0-2.0); EOS % 3.6 % (0-4.5); HEMATOCRIT 22.6 % (32.4-45.2); LYMPH % 30.9 % (8-40); MEAN CELL VOLUME 55.1 fl (80-96); MEAN PLT VOLUME 8.7 fl (7.5-11.1); MONO % 10.6 % (3.8-10.2); NEUT % 53.5 % (42.8-82.8); PLATELET COUNT 316 10^3/uL (134-434); RDW 21.6 % (11.6-15.6); WHITE BLOOD COUNT 5.8 K/mm3 (4.0-10.0)
[2024-05-17 12:18] LABS: HEMOGLOBIN 6.5 GM/dL (10.7-15.3)
[2024-05-17] MEDS: SODIUM CHLORIDE 0.9% 500 ML INFUS.BAG IV ONE (12:18)
[2024-05-17] MEDS: ACETAMINOPHEN 1000 MG/100 ML BAG IVPB ONE (12:19)
[2024-05-17 12:23] LABS: PH,URINE 7.5 (5.0-8.0); URINE APPEARANCE CLEAR; URINE BILIRUBIN NEGATIVE (NEGATIVE); URINE COLOR YELLOW; URINE GLUCOSE (UA) NEGATIVE (NEGATIVE); URINE KETONE NEGATIVE (NEGATIVE); URINE LEUK ESTERASE NEGATIVE (NEGATIVE); URINE NITRITE NEGATIVE (NEGATIVE); URINE PROTEIN NEGATIVE (NEGATIVE); URINE UROBILINOGEN 0.2 mg/dL (0.2-1.0)
[2024-05-17 12:24] LABS: POTASSIUM 4.1 mmol/L (3.5-5.1)
[2024-05-17 12:26] LABS: BLOOD UREA NITROGEN 13.1 mg/dL (7-18); CALCIUM 8.7 mg/dL (8.5-10.1)
[2024-05-17 12:27] LABS: ALBUMIN 3.7 g/dl (3.4-5.0)
[2024-05-17 12:29] LABS: CREATININE 0.5 mg/dL (0.55-1.3)
[2024-05-17 12:31] LABS: BILIRUBIN,TOTAL 0.9 mg/dL (0.2-1)
[2024-05-17 13:05] LABS: ANISOCYTOSIS 2+; MACROCYTOSIS 0; OVALOCYTE 1+
[2024-05-17 14:41] LABS: HCG,QUALITATIVE URINE Negative
[2024-05-17] MEDS ORDERED: ACETAMINOPHEN 500 MG TABLET (FP) PO PRN (16:43)
[2024-05-17] MEDS: FERROUS SO4 325 MG TABLET (FP) PO SCH (17:20)
[2024-05-17] MEDS ORDERED: FERROUS SO4 325 MG TABLET (FP) ONE ×2 (18:18→22:40)
[2024-05-17 20:23] VITALS: RESP 18
[2024-05-17] MEDS ORDERED: SENNOSIDES 8.6MG TABLET (FP) PO ONE (22:40)
[2024-05-17] MEDS: SENNOSIDES 8.6MG TABLET (FP) PO SCH (22:54)
[2024-05-18] MEDS: KETOROLAC TROMETHAMINE 15 MG/ML VIAL IVPUSH PRN (01:16)
[2024-05-18 02:52] VITALS: BMI 29.7
[2024-05-18] MEDS ORDERED: ACETAMINOPHEN 500 MG TABLET (FP) PO PRN (08:45)
[2024-05-18 11:06] LABS: BASO % 1.4 % (0-2.0); EOS % 3.7 % (0-4.5); HEMATOCRIT 25.7 % (32.4-45.2); HEMOGLOBIN 7.9 GM/dL (10.7-15.3); MCHC 30.7 g/dl (32.0-36.0); MEAN CELL VOLUME 58.4 fl (80-96); MEAN PLT VOLUME 8.3 fl (7.5-11.1); MONO % 11.8 % (3.8-10.2); NEUT % 52.1 % (42.8-82.8); PLATELET COUNT 299 10^3/uL (134-434); RDW 23.3 % (11.6-15.6); WHITE BLOOD COUNT 6.6 K/mm3 (4.0-10.0)
[2024-05-18 11:08] LABS: MCH 17.9 pg (25.7-33.7)
[2024-05-18 15:36] VITALS: BP 103/64; PULSE 60; TEMP 99
[2024-05-18] MEDS: IRON SUCROSE INJECTION 100 MG in SODIUM CHLORIDE 95 ML IVPB ONE (17:49)
== END 2024-05-18 20:14 | disposition home or self-care (01) ==
LOC: JER 10:02 → JERBED 17:31 → J8W 05-18 01:09
PROVIDERS: ADMIT Internal Medicine; ATTEND Internal Medicine
PROC: 30233N1 Transfusion of Nonautologous Red Blood Cells into Peripheral Vein, Percutaneous Approach (ICD-10-PCS; principal; 2024-05-17)
PROC: 3E033NZ Introduction of Analgesics, Hypnotics, Sedatives into Peripheral Vein, Percutaneous Approach (ICD-10-PCS; 2024-05-17)
PROC: 3E033GC Introduction of Other Therapeutic Substance into Peripheral Vein, Percutaneous Approach (ICD-10-PCS; 2024-05-17)
PROC: 3E0337Z Introduction of Electrolytic and Water Balance Substance into Peripheral Vein, Percutaneous Approach (ICD-10-PCS; 2024-05-17)
DX: N83.292 Other ovarian cyst, left side (principal); D50.9 Iron deficiency anemia, unspecified; N92.1 Excessive and frequent menstruation with irregular cycle; K80.20 Calculus of gallbladder without cholecystitis without obstruction; Z90.49 Acquired absence of other specified parts of digestive tract
CPT/HCPCS: 36415; 36430; 74177-TC; 76830-TC; 80053; 81003; 83690; 84703; 85025; 86850; 86900; 86901; 86922; 87086; 93005; 93010; 96365; 96375; 99285-25; G0378; J0131; J1756; P9058; Q9967

== ENCOUNTER 2024-05-29 22:05 | Emergency (ER) | payer OTHER ==
[2024-05-29] MEDS: HYDROmorphone HCl 2 MG/ML VIAL IVPUSH ONE ×2 (23:00→23:29)
[2024-05-29] MEDS ORDERED: ONDANSETRON 4 MG/2 ML VIAL ONE (23:03)
[2024-05-29] MEDS ORDERED: HYDROmorphone HCL CARPU-JECT 2 MG/1 ML DISP.SYRIN ONE (23:03)
[2024-05-29 23:26] LABS: BASO % 1.8 % (0-2.0); EOS % 2.2 % (0-4.5); HEMOGLOBIN 8.6 GM/dL (10.7-15.3); LYMPH % 29.1 % (8-40); MCHC 30.6 g/dl (32.0-36.0); MEAN CELL VOLUME 62.3 fl (80-96); MEAN PLT VOLUME 8.3 fl (7.5-11.1); MONO % 7.7 % (3.8-10.2); NEUT % 59.2 % (42.8-82.8); PLATELET COUNT 390 10^3/uL (134-434); RBC 4.49 M/mm3 (3.60-5.2); RDW 34.1 % (11.6-15.6); WHITE BLOOD COUNT 7.2 K/mm3 (4.0-10.0)
[2024-05-29] MEDS: ONDANSETRON 4 MG/2 ML VIAL IVPUSH ONE (23:29)
[2024-05-29] MEDS: LACTATED RINGERS SOLUTION 1000 ML INFUS.BAG IV ONE (23:29)
[2024-05-29 23:31] LABS: ADD RBC MORPHOLOGY YES; MCH 19.1 pg (25.7-33.7)
[2024-05-29 23:32] LABS: INR 1.09 (0.83-1.09); PROTHROMBIN TIME (PATIENT) 12.3 SEC (9.7-13.0)
[2024-05-29 23:35] LABS: ACTIVATED PTT 25.3 SECONDS (25.2-36.5)
[2024-05-29 23:44] LABS: POTASSIUM 4.1 mmol/L (3.5-5.1)
[2024-05-29 23:46] LABS: ALBUMIN 3.6 g/dl (3.4-5.0)
[2024-05-29 23:47] LABS: BLOOD UREA NITROGEN 12.5 mg/dL (7-18); MAGNESIUM 2.2 mg/dL (1.8-2.4)
[2024-05-29 23:50] LABS: CREATININE 0.5 mg/dL (0.55-1.3)
[2024-05-29 23:51] LABS: TOT PROT 7.6 g/dl (6.4-8.2)
[2024-05-30 00:07] LABS: ANISOCYTOSIS 1+; MACROCYTOSIS 0; TEAR DROP CELLS 1+
[2024-05-30] MEDS ORDERED: ONDANSETRON 4 MG/2 ML VIAL ONE (00:29)
[2024-05-30] MEDS: ONDANSETRON 4 MG/2 ML VIAL IVPUSH ONE (01:01)
[2024-05-30 01:16] LABS: EPI CELLS 27 /uL (0-25.1); HYALINE CASTS 0 /uL (0-3.1); URINE APPEARANCE TURBID; URINE BILIRUBIN 2+ (NEGATIVE); URINE COLOR RED; URINE GLUCOSE (UA) NEGATIVE (NEGATIVE); URINE KETONE NEGATIVE (NEGATIVE); URINE LEUK ESTERASE 2+ (NEGATIVE); URINE NITRITE POSITIVE (NEGATIVE); URINE PROTEIN 2+ (NEGATIVE); URINE RBC 169 /uL (0-23.9); URINE UROBILINOGEN 0.2 mg/dL (0.2-1.0); URINE WBC 0 /uL (0-25.8)
[2024-05-30] MEDS ORDERED: HYDROmorphone HCL CARPU-JECT 2 MG/1 ML DISP.SYRIN ONE (01:18)
[2024-05-30] MEDS: HYDROmorphone HCl 2 MG/ML VIAL IVPUSH ONE (01:24)
[2024-05-30] MEDS ORDERED: METOCLOPRAMIDE HCL INJECTION 10 MG/2 ML VIAL ONE (01:37)
[2024-05-30] MEDS: METOCLOPRAMIDE HCL INJECTION 10 MG/2 ML VIAL IVPB ONE (01:46)
[2024-05-30] MEDS ORDERED: CEFTRIAXONE 1 GM/50 ML BAG ONE (02:37)
[2024-05-30 04:18] LABS: BASO % 0.8 % (0-2.0); EOS % 0.3 % (0-4.5); HEMATOCRIT 27.1 % (32.4-45.2); HEMOGLOBIN 8.3 GM/dL (10.7-15.3); LYMPH % 11.6 % (8-40); MCHC 30.4 g/dl (32.0-36.0); MEAN CELL VOLUME 62.4 fl (80-96); MEAN PLT VOLUME 8.7 fl (7.5-11.1); MONO % 4.4 % (3.8-10.2); NEUT % 82.9 % (42.8-82.8); PLATELET COUNT 359 10^3/uL (134-434); RBC 4.35 M/mm3 (3.60-5.2); RDW 34.1 % (11.6-15.6); WHITE BLOOD COUNT 8.7 K/mm3 (4.0-10.0)
[2024-05-30 05:58] VITALS: PULSE 80; RESP 18
[2024-05-30 06:22] VITALS: BP 126/76; TEMP 98.9
== END 2024-05-30 06:22 | disposition home or self-care (01) ==
LOC: JER 22:05
PROC: 3E03329 Introduction of Other Anti-infective into Peripheral Vein, Percutaneous Approach (ICD-10-PCS; principal; 2024-05-30)
PROC: 3E033GC Introduction of Other Therapeutic Substance into Peripheral Vein, Percutaneous Approach (ICD-10-PCS; 2024-05-30)
PROC: 3E033NZ Introduction of Analgesics, Hypnotics, Sedatives into Peripheral Vein, Percutaneous Approach (ICD-10-PCS; 2024-05-30)
PROC: 3E033NZ Introduction of Analgesics, Hypnotics, Sedatives into Peripheral Vein, Percutaneous Approach (ICD-10-PCS; 2024-05-30)
PROC: 3E033GC Introduction of Other Therapeutic Substance into Peripheral Vein, Percutaneous Approach (ICD-10-PCS; 2024-05-30)
PROC: 3E033GC Introduction of Other Therapeutic Substance into Peripheral Vein, Percutaneous Approach (ICD-10-PCS; 2024-05-30)
PROC: 3E033GC Introduction of Other Therapeutic Substance into Peripheral Vein, Percutaneous Approach (ICD-10-PCS; 2024-05-30)
DX: N93.9 Abnormal uterine and vaginal bleeding, unspecified (principal); N39.0 Urinary tract infection, site not specified
CPT/HCPCS: 36415; 74177-TC; 76830-TC; 80053; 81003; 83605; 83690; 83735; 84703; 85025; 85610; 85730; 86850; 86900; 86901; 87086; 93005; 93010; 99285-25; Q9967

== ENCOUNTER 2024-06-11 07:19 | Day surgery (SDC) | payer OTHER ==
[2024-06-11] MEDS: FERRIC CARBOXYMALTOSE 750 MG in SODIUM CHLORIDE 250 ML IVPB ONE (07:55)
[2024-06-11 17:35] VITALS: RESP 18; TEMP 98.1
[2024-06-11 17:40] VITALS: BP 95/50; PULSE 50
== END 2024-06-11 09:00 | disposition home or self-care (01) ==
LOC: JONCNONCHE 07:19 → J7W 07:32 → JONCNONCHE 09:00
PROVIDERS: ATTEND Internal Medicine Hematology & Oncology
PROC: 3E033GC Introduction of Other Therapeutic Substance into Peripheral Vein, Percutaneous Approach (ICD-10-PCS; principal; 2024-06-11)
DX: D50.0 Iron deficiency anemia secondary to blood loss (chronic) (principal)
CPT/HCPCS: 96365; J1439

== ENCOUNTER 2024-06-18 07:28 | Day surgery (SDC) | payer OTHER ==
[2024-06-18] MEDS: FERRIC CARBOXYMALTOSE 750 MG in SODIUM CHLORIDE 250 ML IVPB ONE (07:43)
[2024-06-18 09:16] VITALS: RESP 18; TEMP 98.1
[2024-06-18 09:18] VITALS: BP 109/66; PULSE 47
== END 2024-06-18 08:45 | disposition home or self-care (01) ==
LOC: J7W 07:28 → JONCNONCHE 07:28
PROVIDERS: ATTEND Internal Medicine Hematology & Oncology
PROC: 3E033GC Introduction of Other Therapeutic Substance into Peripheral Vein, Percutaneous Approach (ICD-10-PCS; principal; 2024-06-18)
DX: D50.9 Iron deficiency anemia, unspecified (principal)
CPT/HCPCS: 96365; J1439

== ENCOUNTER 2024-07-22 17:18 | Emergency (ER) | payer OTHER ==
[2024-07-22 17:37] VITALS: BP 123/70; PULSE 59; TEMP 98.4; BMI 28.7
[2024-07-22] MEDS ORDERED: valACYclovir HCL 500 MG TABLET (FP) ONE ×2 (18:51→18:54)
[2024-07-22] MEDS ORDERED: IBUPROFEN 600 MG TABLET (FP) PO ONE (18:54)
[2024-07-22] MEDS: valACYclovir HCL 500 MG TABLET (FP) PO ONE (18:54)
[2024-07-22] MEDS: IBUPROFEN 600 MG TABLET (FP) PO ONE (18:57)
[2024-07-22 22:29] LABS: HIV INTERPRETATION NEGATIVE (NEGATIVE)
== END 2024-07-22 20:15 | disposition home or self-care (01) ==
LOC: JER 17:18
DX: R21 Rash and other nonspecific skin eruption (principal); B02.9 Zoster without complications
CPT/HCPCS: 36415; 86803; 87389; 99283-25